=== PATIENT | female | born 1980 | race Caucasian/White ===

== ENCOUNTER → 2019-04-23 10:12 | Outpatient (BNVA) | payer MEDICAID, SELFPAY | PROVIDERS: PCP Nurse Practitioner; Visit Provider Nurse Practitioner | DX: F41.9 Anxiety disorder, unspecified (principal); Z13.6 Encounter for screening for cardiovascular disorders; Z12.39 Encounter for other screening for malignant neoplasm of breast; F41.1 Generalized anxiety disorder | CPT/HCPCS: 80053; 80061; 81000; 82607; 84443; 85025 ==

== ENCOUNTER 2019-06-25 09:00 | Outpatient (CLI) | payer MEDICAID, SELFPAY ==
--- NOTE | 2019-06-25 09:05 | MM_ITS ---
WS: [id number] BILATERAL DIGITAL SCREENING MAMMOGRAPHY WITH CAD CLINICAL INFORMATION: SCREEN HISTORY: Screening mammogram. Breast soreness COMPARISON: February 10, 2009 TECHNIQUE: Bilateral CC and MLO views. FINDINGS: The breasts are composed of heterogeneous fibroglandular density tissue, which can limit the detectio n of small underlying mass lesions. No suspicious mass, asymmetry, calcifications, or architectural d istortion. No evidence of malignancy. Stable punctate calcifications. MM/[place] [id number] IMPRESSION: BI-RADS: 2-Benign FOLLOW UP: 1 Year Follow-up Recommend return to annual screening mammography.
== END 2019-06-25 09:01 | disposition home or self-care (01) ==
PROVIDERS: PCP Nurse Practitioner; Visit Provider Nurse Practitioner
DX: Z12.31 Encounter for screening mammogram for malignant neoplasm of breast (principal)
CPT/HCPCS: 77067

== ENCOUNTER → 2019-10-02 11:15 | Outpatient (BNVA) | payer MEDICAID, SELFPAY | PROVIDERS: PCP Nurse Practitioner; Visit Provider Nurse Practitioner Family | DX: Z11.59 Encounter for screening for other viral diseases (principal); J06.9 Acute upper respiratory infection, unspecified; R68.83 Chills (without fever) | CPT/HCPCS: 87635 ==

== ENCOUNTER → 2019-11-01 09:50 | Outpatient (BNVA) | payer MEDICAID, SELFPAY | PROVIDERS: PCP Nurse Practitioner; Visit Provider Nurse Practitioner | DX: F41.1 Generalized anxiety disorder (principal); I10 Essential (primary) hypertension; E03.9 Hypothyroidism, unspecified | CPT/HCPCS: 80053; 80061; 81000; 84443; 85025 ==

== ENCOUNTER → 2019-11-06 15:38 | Outpatient (BNVA) | payer MEDICAID, SELFPAY | PROVIDERS: PCP Nurse Practitioner; Visit Provider Nurse Practitioner Family | DX: Z11.59 Encounter for screening for other viral diseases (principal); Z20.828 Contact with and (suspected) exposure to other viral communicable diseases | CPT/HCPCS: 87635 ==

== ENCOUNTER → 2019-11-12 10:26 | Outpatient (BNVA) | payer MEDICAID, SELFPAY | PROVIDERS: PCP Nurse Practitioner; Visit Provider Nurse Practitioner | DX: Z11.59 Encounter for screening for other viral diseases (principal); Z20.828 Contact with and (suspected) exposure to other viral communicable diseases | CPT/HCPCS: 87635 ==

== ENCOUNTER 2020-01-22 07:53 | Outpatient (CLI) | payer MEDICAID, SELFPAY ==
--- NOTE | 2020-01-22 08:00 | MR_ITS ---
WS: [id number] MRI HEAD WITHOUT CONTRAST TECHNIQUE: Sagittal T1, T2 axial, T2 axial FLAIR, axial and coronal T1 images, axial susceptibility w eighted imaging, axial diffusion weighted images, and coronal T2 images were obtained. CLINICAL INFORMATION: R51 - Headache COMPARISON: MRI February 17, 2009 FINDINGS: No evidence of restricted diffusion to suggest acute ischemia. Ventricular system and basal cisterns are patent. A few small foci of T2 hyperintensity in the subcortical and periventricular white matter nonspecific in a patient this age. No significant parenchymal volume loss. White matter changes are unchanged since 2009. Normal posterior fossa. Normal vascular flow voids at the skull base. No extra-axial fluid collection s. No evidence of mass or mass effect. Paranasal sinuses and mastoid air cells well aerated. No hemosiderin on susceptibly weighted images. Normal optic chiasm and pituitary infundibulum. Tempor al lobes and hippocampal formations are normal in appearance. Normal subcutaneous soft tissues. MR/MR head wo con* [id number] IMPRESSION: 1. No evidence of restricted diffusion to suggest acute ischemia. 2. Mild supratentorial white matter changes nonspecific in a patient this age but can be seen with hypertension, diabetes, and migraine headaches. This is un changed since 2009. No significant parenchymal volume loss. 3. No hemosiderin on the susceptibly weighted images. 4. Temporal lobes and hippocampal formations are normal in appearance. 5. Paranasal sinuses and mastoid air cells well aerated. 6. No other significant findings.
== END 2020-01-22 07:54 | disposition home or self-care (01) ==
LOC: RADSHAW 07:56
PROVIDERS: PCP Nurse Practitioner; Visit Provider Nurse Practitioner
DX: R51.9 Headache, unspecified (principal)
CPT/HCPCS: 70551

== ENCOUNTER → 2020-02-12 10:43 | Outpatient (BNVA) | payer BC, MEDICAID, SELFPAY | PROVIDERS: PCP Nurse Practitioner; Visit Provider Nurse Practitioner Family | DX: Z20.828 Contact with and (suspected) exposure to other viral communicable diseases (principal) | CPT/HCPCS: 87635 ==

== ENCOUNTER → 2020-07-18 10:47 | Outpatient (BNVA) | payer BC, SELFPAY | PROVIDERS: PCP Nurse Practitioner; Visit Provider Nurse Practitioner | DX: B00.9 Herpesviral infection, unspecified (principal); J98.09 Other diseases of bronchus, not elsewhere classified | CPT/HCPCS: 80053 ==

== ENCOUNTER → 2020-09-02 10:51 | Outpatient (BNVA) | payer BC, MEDICAID, SELFPAY | PROVIDERS: PCP Nurse Practitioner; Visit Provider Nurse Practitioner Family | DX: J06.9 Acute upper respiratory infection, unspecified (principal); Z20.828 Contact with and (suspected) exposure to other viral communicable diseases | CPT/HCPCS: 87635 ==

== ENCOUNTER → 2020-10-06 10:25 | Outpatient (BNVA) | payer BC, MEDICAID, SELFPAY | PROVIDERS: PCP Nurse Practitioner; Visit Provider Nurse Practitioner Family | DX: J06.9 Acute upper respiratory infection, unspecified (principal); Z20.822 Contact with and (suspected) exposure to COVID-19; Z20.828 Contact with and (suspected) exposure to other viral communicable diseases | CPT/HCPCS: 87635 ==

== ENCOUNTER → 2020-10-29 11:35 | Outpatient (BNVA) | payer BC, MEDICAID, SELFPAY | PROVIDERS: PCP Nurse Practitioner; Visit Provider Nurse Practitioner | DX: R20.0 Anesthesia of skin (principal); R20.2 Paresthesia of skin | CPT/HCPCS: 72072; 73000 ==

== ENCOUNTER 2020-12-03 07:56 | Outpatient (CLI) | payer BC, MEDICAID, SELFPAY ==
--- NOTE | 2020-12-03 08:00 | MM_ITS ---
WS: [id number] BILATERAL DIGITAL DIAGNOSTIC MAMMOGRAM MAMMOGRAPHY WITH CAD CLINICAL INFORMATION: N64.4 - Mastodynia HISTORY: Left breast pain and soreness. COMPARISON: June 25, 2019. TECHNIQUE: Bilateral CC, MLO, and ML views. FINDINGS: Scattered fibroglandular densities bilaterally. Stable incidental benign punctate calcifications. Mul tiple palpable markers. A few ovoid densities left breast area of palpable markers likely breast cyst s. Stable appearing nodular breast tissue left breast. Dense parenchymal tissue upper outer right donna ast. Ultrasound is pending. ULTRASOUND BREAST BILATERAL TECHNIQUE: Ultrasound bilateral breast focused area of concern. CLINICAL INFORMATION: N64.4 - Mastodynia FINDINGS: Ultrasound bilateral breasts. Multiple simple and complex cysts in the left breast in the area of palpable concern. Largest lobulated cyst left breast at the 2:00 position 3 cm from the nipple measuring 1.2 x 1.7 x 0. 7 CM with a few septations and some internal debris. This is probably benign and recommend 6 month fo llow-up to confirm stability. Additional smaller lobulated cysts at the 12:00 position measuring 0.4 x 0.3 x 0.2 cm and 6:00 measur ing 0.4 x 0.5 x 0.4 CM. No suspicious abnormalities in the right breast in the area of palpable concern 3:00 and 9:00. Dense fibroglandular tissue in the area of palpable concern right breast. MM/[place] [id number] IMPRESSION: BI-RADS: 3-Probably Benign FOLLOW UP: 6 Month Follow-up Recommend 6 month follow-up left breast diagnostic mammography and ultrasound w ith attention to the complex breast cyst at the 2:00 position.
--- NOTE | 2020-12-03 08:08 | US_ITS ---
WS: [id number] BILATERAL DIGITAL DIAGNOSTIC MAMMOGRAM MAMMOGRAPHY WITH CAD CLINICAL INFORMATION: N64.4 - Mastodynia HISTORY: Left breast pain and soreness. COMPARISON: June 25, 2019. TECHNIQUE: Bilateral CC, MLO, and ML views. FINDINGS: Scattered fibroglandular densities bilaterally. Stable incidental benign punctate calcifications. Mul tiple palpable markers. A few ovoid densities left breast area of palpable markers likely breast cyst s. Stable appearing nodular breast tissue left breast. Dense parenchymal tissue upper outer right donna ast. Ultrasound is pending. ULTRASOUND BREAST BILATERAL TECHNIQUE: Ultrasound bilateral breast focused area of concern. CLINICAL INFORMATION: N64.4 - Mastodynia FINDINGS: Ultrasound bilateral breasts. Multiple simple and complex cysts in the left breast in the area of palpable concern. Largest lobulated cyst left breast at the 2:00 position 3 cm from the nipple measuring 1.2 x 1.7 x 0. 7 CM with a few septations and some internal debris. This is probably benign and recommend 6 month fo llow-up to confirm stability. Additional smaller lobulated cysts at the 12:00 position measuring 0.4 x 0.3 x 0.2 cm and 6:00 measur ing 0.4 x 0.5 x 0.4 CM. No suspicious abnormalities in the right breast in the area of palpable concern 3:00 and 9:00. Dense fibroglandular tissue in the area of palpable concern right breast. US/US breast BI limited* [id number] IMPRESSION: BI-RADS: 3-Probably Benign FOLLOW UP: 6 Month Follow-up Recommend 6 month follow-up left breast diagnostic mammography and ultrasound w ith attention to the complex breast cyst at the 2:00 position.
== END 2020-12-03 07:57 | disposition home or self-care (01) ==
PROVIDERS: PCP Nurse Practitioner; Visit Provider Nurse Practitioner
DX: N63.20 Unspecified lump in the left breast, unspecified quadrant (principal); N64.4 Mastodynia
CPT/HCPCS: 76642; 77066

== ENCOUNTER → 2020-12-09 15:05 | Outpatient (BNVA) | payer BC, MEDICAID, SELFPAY | PROVIDERS: PCP Nurse Practitioner; Visit Provider Nurse Practitioner | DX: R53.83 Other fatigue (principal) | CPT/HCPCS: 86664; 86665 ==

== ENCOUNTER → 2021-01-23 09:47 | Outpatient (BNVA) | payer BC, MEDICAID, SELFPAY | PROVIDERS: PCP Nurse Practitioner; Visit Provider Nurse Practitioner Family | DX: J02.9 Acute pharyngitis, unspecified (principal); Z20.828 Contact with and (suspected) exposure to other viral communicable diseases | CPT/HCPCS: 87071; 87635; 87880 ==

== ENCOUNTER 2021-05-21 14:18 | Outpatient (CLI) | payer BC, MEDICAID, SELFPAY ==
--- NOTE | 2021-05-21 14:49 | MM_ITS ---
WS: [id number] LEFT 3D TOMOSYNTHESIS DIGITAL MAMMOGRAPHY WITH CAD CLINICAL INFORMATION: N60.09 - Solitary cyst of unspecified breast. Bilateral breast lumps and sorene ss. COMPARISON: December 03, 2020 TECHNIQUE: 3 views of the left breast were obtained. FINDINGS: The left breast is composed of heterogeneous fibroglandular density tissue, which can limit the detec tion of small underlying mass lesions. Multiple asymmetric densities in the area of palpable concern similar in appearance to the prior mammogram. Ultrasound is pending. A few punctate and tiny clustere d calcifications. ULTRASOUND BREAST LEFT TECHNIQUE: Ultrasound left breast focused area of concern. CLINICAL INFORMATION: N60.09 - Solitary cyst of unspecified breast COMPARISON: December 03, 2020 FINDINGS: Ultrasound LEFT breast at the 12 to 3:00 position. Multiple lobulated cysts are visualized with a few septations at the 2 and 3:00 positions. Largest measures 1.3 x 1.5 x 0.9 cm similar to December 03 021. These have a benign appearance. Recommend return to annual screening mammography. MM/[place] [id number] IMPRESSION: BI-RADS: 2-Benign FOLLOW UP: 1 Year Follow-up Recommend return to annual screening mammography.
== END 2021-05-21 14:19 | disposition home or self-care (01) ==
LOC: RADSHAW 14:26
PROVIDERS: PCP Nurse Practitioner; Visit Provider Nurse Practitioner
DX: N60.09 Solitary cyst of unspecified breast (principal)
CPT/HCPCS: 76642; 77061

== ENCOUNTER → 2021-11-03 15:55 | Outpatient (BNVA) | payer BC, MEDICAID, SELFPAY | PROVIDERS: Visit Provider Nurse Practitioner | DX: R30.0 Dysuria (principal); B00.9 Herpesviral infection, unspecified; B37.9 Candidiasis, unspecified | CPT/HCPCS: 81000 ==

== ENCOUNTER → 2021-11-25 09:47 | Outpatient (BNVA) | payer BC, MEDICAID, SELFPAY | PROVIDERS: Visit Provider Nurse Practitioner | DX: J98.09 Other diseases of bronchus, not elsewhere classified (principal) | CPT/HCPCS: 71046 ==

== ENCOUNTER 2022-06-02 10:05 | Outpatient (CLI) | payer BC, MEDICAID, SELFPAY ==
--- NOTE | 2022-06-02 10:21 | MM_ITS ---
WS: [id number] VIEWS: MLO and CC views both breasts. 3D digital tomosynthesis is also included in this exam. Comparison made with prior exam of 02/10/2009, 06/25/2019, 12/03/2020,. Findings: There was no sign of mass, architectural distortion or suspicious calcification in either breast. He terogeneously dense MM/[place] [id number] Impression: BI-RADS: 2-Benign FOLLOW-UP: 1 Year Follow-up This mammogram was also analyzed by the Computer Aided Detection System R2 Imag [employer] Grinding Machine [employer].
== END 2022-06-02 10:06 | disposition home or self-care (01) ==
LOC: RAD 10:09
PROVIDERS: PCP Nurse Practitioner; Visit Provider Nurse Practitioner
DX: Z12.31 Encounter for screening mammogram for malignant neoplasm of breast (principal)
CPT/HCPCS: 77063; 77067

== ENCOUNTER → 2023-01-24 11:22 | Outpatient (BNVA) | payer BC, MEDICAID, SELFPAY | PROVIDERS: PCP Nurse Practitioner; Visit Provider Obstetrics & Gynecology | DX: N83.291 Other ovarian cyst, right side (principal); R10.2 Pelvic and perineal pain | CPT/HCPCS: 76830 ==

== ENCOUNTER → 2023-04-21 14:27 | Outpatient (BNVA) | payer BC, MEDICAID, SELFPAY | PROVIDERS: PCP Nurse Practitioner; Visit Provider Nurse Practitioner | DX: B00.9 Herpesviral infection, unspecified (principal); J98.09 Other diseases of bronchus, not elsewhere classified; M26.629 Arthralgia of temporomandibular joint, unspecified side; B27.90 Infectious mononucleosis, unspecified without complication | CPT/HCPCS: 80053; 85025 ==

== ENCOUNTER → 2023-07-06 16:01 | Outpatient (BNVA) | payer MEDICAID, SELFPAY | PROVIDERS: PCP Nurse Practitioner; Visit Provider Nurse Practitioner | DX: M25.50 Pain in unspecified joint (principal); E55.9 Vitamin D deficiency, unspecified; Z79.899 Other long term (current) drug therapy | CPT/HCPCS: 82306; 82607; 84443; 85651 ==

== ENCOUNTER → 2023-07-11 09:18 | Outpatient (BNVA) | payer MEDICAID, SELFPAY | PROVIDERS: PCP Nurse Practitioner; Visit Provider Nurse Practitioner | DX: M77.32 Calcaneal spur, left foot (principal); M79.672 Pain in left foot; M25.521 Pain in right elbow; M79.671 Pain in right foot | CPT/HCPCS: 73080; 73630 ==

== ENCOUNTER 2023-07-12 08:42 | Outpatient (CLI) | payer MEDICAID, SELFPAY ==
--- NOTE | 2023-07-12 09:00 | MM_ITS ---
WS: [id number] BILATERAL 3D TOMOSYNTHESIS DIGITAL SCREENING MAMMOGRAPHY WITH CAD CLINICAL INFORMATION: Z12.31 - Encounter for screening mammogram for malignant ... HISTORY: Screening mammogram. Chronic LEFT breast soreness COMPARISON: 2022 TECHNIQUE: Bilateral CC and MLO views. FINDINGS: The breasts are composed of heterogeneous fibroglandular density tissue, which can limit the detectio n of small underlying mass lesions. No suspicious mass, asymmetry, calcifications, or architectural d istortion. No evidence of malignancy. A few incidental punctate calcifications. Stable dense heteroge neous breast tissue upper outer LEFT breast. MM/[place] [id number] IMPRESSION: BI-RADS: 2-Benign FOLLOW UP: 1 Year Follow-up Recommend return to annual screening mammography.
== END 2023-07-12 08:43 | disposition home or self-care (01) ==
LOC: RAD 08:43
PROVIDERS: PCP Nurse Practitioner; Visit Provider Nurse Practitioner
DX: Z12.31 Encounter for screening mammogram for malignant neoplasm of breast (principal); R92.323 Mammographic fibroglandular density, bilateral breasts; R92.333 Mammographic heterogeneous density, bilateral breasts; R92.1 Mammographic calcification found on diagnostic imaging of breast
CPT/HCPCS: 77063; 77067

== ENCOUNTER → 2023-07-26 09:01 | Outpatient (BNVA) | payer MEDICAID, SELFPAY | PROVIDERS: PCP Nurse Practitioner; Visit Provider Podiatrist Foot & Ankle Surgery | DX: M79.671 Pain in right foot (principal); M79.672 Pain in left foot; M76.821 Posterior tibial tendinitis, right leg; M76.822 Posterior tibial tendinitis, left leg | CPT/HCPCS: 73630 ==

== ENCOUNTER → 2023-08-02 11:33 | Outpatient (BNVA) | payer MEDICAID, SELFPAY | PROVIDERS: PCP Nurse Practitioner; Visit Provider Nurse Practitioner | DX: J02.9 Acute pharyngitis, unspecified (principal) | CPT/HCPCS: 87071; 87880 ==

== ENCOUNTER → 2023-11-15 12:03 | Outpatient (BNVA) | payer MEDICAID, SELFPAY | PROVIDERS: PCP Nurse Practitioner; Visit Provider Clinical Nurse Specialist Adult Health | DX: J20.9 Acute bronchitis, unspecified (principal) | CPT/HCPCS: 87400; 87426 ==

== ENCOUNTER → 2023-11-21 09:18 | Outpatient (BNVA) | payer MEDICAID, SELFPAY | PROVIDERS: PCP Nurse Practitioner; Visit Provider Clinical Nurse Specialist Adult Health | DX: J20.9 Acute bronchitis, unspecified (principal) | CPT/HCPCS: 87486; 87581; 87633 ==

== ENCOUNTER → 2023-11-22 14:38 | Outpatient (BNVA) | payer MEDICAID, SELFPAY | PROVIDERS: PCP Nurse Practitioner; Visit Provider Nurse Practitioner | DX: F17.200 Nicotine dependence, unspecified, uncomplicated (principal) | CPT/HCPCS: 71046; 80053; 85025; 85651; 86038; 86140; 86431 ==

== ENCOUNTER → 2024-11-08 10:54 | Outpatient (BNVA) | payer SELFPAY | PROVIDERS: PCP Nurse Practitioner; Visit Provider Nurse Practitioner | DX: L29.2 Pruritus vulvae (principal); Z11.59 Encounter for screening for other viral diseases; R30.0 Dysuria | CPT/HCPCS: 80053; 81000; 85025; 86705; 86706; 86709; 86803; 87070; 87205; 87340 ==